=== PATIENT | female | born 1960 | race Caucasian/White ===

== ENCOUNTER 2021-11-15 21:11 | Observation (INO) ==
[2021-11-15 21:49] LABS: Bilirubin,Urine Negative (Negative); Blood,Urine Negative (Negative); Clarity,Urine Clear (Clear); Color,Urine Yellow (Yellow); Glucose,Urine (UA) Normal (Normal); Ketones,Urine Trace mg/dL (Negative); Leukocyte Esterase,Urine Negative (Negative); Nitrite,Urine Negative (Negative); PH,Urine 5.5 pH Units (5.0-8.0); Protein,Urine Trace mg/dL (Neg-Trace); Specific Gravity,Urine 1.029 (1.010-1.025); Urobilinogen,Urine Normal (Normal)
[2021-11-15 22:02] LABS: Basophils # 0.1 K/mcL (0.0-0.2); Basophils % 0.6 %; Eosinophils % 0.4 %; Hematocrit 45.6 % (35.3-44.9); Hemoglobin 14.9 g/dL (11.5-15.4); Immature Granulocytes % 0.4 % (0-4); Lymphocytes # 2.2 K/mcL (0.6-4.6); Lymphocytes % 20.7 %; Mean Corpuscular HGB Conc 32.7 g/dL (31.6-35.5); Mean Corpuscular Hemoglobin 29.3 pg (28.0-33.3); Mean Corpuscular Volume 89.8 fL (83.0-100.0); Mean Platelet Volume 11.8 fL (9.4-12.4); Monocytes # 0.6 K/mcL (0.0-1.3); Monocytes % 5.3 %; Neutrophils # 7.7 K/mcL (1.6-8.9); Platelet Count 291 K/mcL (140-400); Red Blood Count 5.08 M/mcL (3.82-4.97); Red Cell Distribution Width 13.2 % (11.5-14.5); Segmented Neutrophils % 72.6 %; White Blood Count 10.6 K/mcL (4.3-11.1)
[2021-11-15 22:23] LABS: Influenza A PCR Negative (Negative); Influenza B PCR Negative (Negative); Resp. Syncytial Virus PCR Negative (Negative)
[2021-11-15 22:25] LABS: SARS-CoV-2 by PCR (In House) Negative (Negative)
[2021-11-15 22:42] LABS: Alanine Aminotransferase 23 Units/L (7-52); Albumin 4.4 g/dL (3.5-5.7); Albumin/Globulin Ratio 1.6 (1.1-2.2); Alkaline Phosphatase 95 Units/L (34-104); Aspartate Amino Transferase 19 Units/L (13-39); BUN/Creatinine Ratio 13 (6-26); Bilirubin,Indirect 0.3 mg/dL (0.0-1.0); Bilirubin,Total 0.3 mg/dL (0.3-1.0); Blood Urea Nitrogen 13 mg/dL (8-23); Carbon Dioxide 23 mEq/L (23-29); Chloride 106 mEq/L (98-107); Globulin 2.8 g/dL (2.4-3.5); Glucose 152 mg/dL (70-105); Lipase 10 Units/L (11-82); Osmolality,Calculated 289 (280-300); Potassium 4.1 mEq/L (3.5-5.1); Sodium 138 mEq/L (136-145); Total Protein 7.2 g/dL (6.4-8.9); eGFR For African Americans > 60 (> 60); eGFR For Non-African Americans 55 (> 60)
[2021-11-15] MEDS ORDERED: Ondansetron 4 MG/2 ML VIAL IVP ONE (23:17)
[2021-11-15] MEDS ORDERED: Iopamidol - 370 500 ML MLS IVP ONE (23:17)
[2021-11-15] MEDS ORDERED: Morphine Sulfate 2 MG/ML SYRINGE IVP ONE (23:17)
[2021-11-15] MEDS ORDERED: 0.9 % Sodium Chloride 1,000 ML IV ONE (23:17)
[2021-11-15 23:49] LABS: Troponin I < 0.03 ng/mL (< 0.04)
[2021-11-16] MEDS ORDERED: Morphine Sulfate 2 MG/ML SYRINGE IVP ONE ×2 (01:19→02:37)
[2021-11-16] MEDS ORDERED: Piperacillin/Tazobactam 3.375 GM in 0.9 % Sodium Chloride Mini Bag 100 ML IVP ONE (02:02)
[2021-11-16] MEDS ORDERED: D5% in Water 1,000 ML IVC PRN ×2 (02:22→19:56)
[2021-11-16] MEDS ORDERED: Ondansetron 4 MG/2 ML VIAL IVP PRN ×3 (02:22→19:56)
[2021-11-16] MEDS ORDERED: *HR* Dextrose 50 % in Water (Syg) 50 ML SYRINGE IVP PRN ×2 (02:22→19:56)
[2021-11-16] MEDS ORDERED: Dextrose Gel 15 GM/37.5 ML TUBE PO PRN ×4 (02:22→19:56)
[2021-11-16] MEDS ORDERED: Naloxone 0.4 MG/ML INJ IVP PRN ×3 (02:22→19:56)
[2021-11-16] MEDS ORDERED: Acetaminophen 325 MG TABLET PO PRN (03:19)
[2021-11-16] MEDS: 0.9 % Sodium Chloride 1,000 ML IVC SCH ×3 (03:52→20:41)
[2021-11-16 05:35] LABS: Basophils # 0.1 K/mcL (0.0-0.2); Basophils % 0.4 %; Hematocrit 48.5 % (35.3-44.9); Hemoglobin 14.8 g/dL (11.5-15.4); Immature Granulocytes % 0.5 % (0-4); Immature Platelets 11.4 % (1.1-6.1); Lymphocytes # 1.3 K/mcL (0.6-4.6); Lymphocytes % 9.3 %; Mean Corpuscular HGB Conc 30.5 g/dL (31.6-35.5); Mean Corpuscular Hemoglobin 28.8 pg (28.0-33.3); Mean Corpuscular Volume 94.4 fL (83.0-100.0); Mean Platelet Volume 12.2 fL (9.4-12.4); Monocytes # 0.7 K/mcL (0.0-1.3); Monocytes % 5.2 %; Neutrophils # 11.8 K/mcL (1.6-8.9); Platelet Count 218 K/mcL (140-400); Red Blood Count 5.14 M/mcL (3.82-4.97); Red Cell Distribution Width 13.4 % (11.5-14.5); Segmented Neutrophils % 84.6 %; White Blood Count 13.9 K/mcL (4.3-11.1)
[2021-11-16 05:42] LABS: INR 0.9; Prothrombin Time 10.5 Seconds (9.4-12.1)
[2021-11-16] MEDS ORDERED: Famotidine 20 MG/2 ML VIAL IVP ONE (06:00)
[2021-11-16] MEDS ORDERED: Ringers Solution, Lactated 1,000 ML IVC ONE (06:00)
[2021-11-16] MEDS ORDERED: Pantoprazole 40 MG VIAL IVP SCH (06:30)
[2021-11-16 06:58] LABS: BUN/Creatinine Ratio 14 (6-26); Blood Urea Nitrogen 12 mg/dL (8-23); Carbon Dioxide 20 mEq/L (23-29); Chloride 107 mEq/L (98-107); Glucose 141 mg/dL (70-105); Osmolality,Calculated 286 (280-300); Potassium 3.8 mEq/L (3.5-5.1); Sodium 137 mEq/L (136-145); eGFR For African Americans > 60 (> 60); eGFR For Non-African Americans > 60 (> 60)
[2021-11-16] MEDS ORDERED: Piperacillin/Tazobactam 3.375 GM in 0.9 % Sodium Chloride Mini Bag 100 ML IVPB SCH (10:00)
[2021-11-16 12:09] LABS: Alanine Aminotransferase 45 Units/L (7-52); Albumin 4.3 g/dL (3.5-5.7); Albumin/Globulin Ratio 1.5 (1.1-2.2); Alkaline Phosphatase 109 Units/L (34-104); Aspartate Amino Transferase 54 Units/L (13-39); Bilirubin,Total 0.4 mg/dL (0.3-1.0); Calcium 8.8 mg/dL (8.6-10.3); Globulin 2.9 g/dL (2.4-3.5); Magnesium 2.1 mg/dL (1.6-2.6); Phosphorous 2.6 mg/dL (2.7-4.5); Total Protein 7.2 g/dL (6.4-8.9)
[2021-11-16] MEDS ORDERED: Acetaminophen IV 1,000 MG/100 ML BAG IVPB ONE (13:33)
[2021-11-16] MEDS ORDERED: Ondansetron 4 MG/2 ML VIAL ONE (15:11)
[2021-11-16] MEDS ORDERED: Lidocaine HCL 4 ML Topical Solution (Laryng-O-Jet Kit Sterile Pak) TP ONE (15:11)
[2021-11-16] MEDS ORDERED: Lidocaine -MPF 2% 5 ML VIAL ONE (15:11)
[2021-11-16] MEDS ORDERED: *HR* Rocuronium Bromide 50 MG/5 ML VIAL ONE (15:11)
[2021-11-16] MEDS ORDERED: *HR* Propofol 200 MG/20 ML VIAL IVP ONE (15:12)
[2021-11-16] MEDS ORDERED: Famotidine 20 MG/2 ML VIAL ONE (16:06)
[2021-11-16] MEDS ORDERED: *HR* FentaNYL (PF) 100 MCG/2 ML VIAL IVP PRN (16:09)
[2021-11-16] MEDS ORDERED: Albuterol 2.5 MG/3 ML NEBULIZER IH PRN (16:09)
[2021-11-16] MEDS ORDERED: Nitroglycerin 0.4 MG TAB.SUBL SL PRN (16:09)
[2021-11-16] MEDS ORDERED: *HR* Promethazine 25 MG/ML VIAL ONE (16:55)
[2021-11-16] MEDS ORDERED: Iopamidol - 300 50 ML VIAL ONE (17:04)
[2021-11-16] MEDS ORDERED: *HR* Midazolam HCl 2 MG/2 ML VIAL ONE (17:19)
[2021-11-16] MEDS ORDERED: Ketamine HCL *QUVA* 50mg (1mL) SYRINGE ONE (17:32)
[2021-11-16] MEDS ORDERED: Sugammadex Sodium 200 MG/2 ML VIAL IV ONE (18:20)
[2021-11-16] MEDS: Gabapentin 400 MG CAPSULE PO SCH (21:14)
[2021-11-17] MEDS: Ketorolac 30 MG/ML VIAL IVP SCH ×3 (01:20→11:16)
[2021-11-17] MEDS: Acetaminophen IV 1,000 MG/100 ML BAG IVPB SCH ×2 (01:21→06:10)
[2021-11-17] MEDS: Piperacillin/Tazobactam 3.375 GM in 0.9 % Sodium Chloride Mini Bag 100 ML IVPB SCH ×2 (01:31→08:49)
[2021-11-17] MEDS ORDERED: Temazepam 15 MG CAPSULE PO PRN (01:39)
[2021-11-17 02:46] LABS: Basophils % 0.1 %; Hematocrit 37.7 % (35.3-44.9); Immature Granulocytes % 0.5 % (0-4); Lymphocytes # 1.2 K/mcL (0.6-4.6); Lymphocytes % 8.8 %; Mean Corpuscular HGB Conc 33.2 g/dL (31.6-35.5); Mean Corpuscular Hemoglobin 28.8 pg (28.0-33.3); Monocytes # 0.4 K/mcL (0.0-1.3); Neutrophils # 12.1 K/mcL (1.6-8.9); Platelet Count 280 K/mcL (140-400); Red Blood Count 4.34 M/mcL (3.82-4.97); Red Cell Distribution Width 13.2 % (11.5-14.5); Segmented Neutrophils % 87.6 %; White Blood Count 13.8 K/mcL (4.3-11.1)
[2021-11-17 02:47] LABS: Hemoglobin 12.5 g/dL (11.5-15.4); Mean Corpuscular Volume 86.9 fL (83.0-100.0)
[2021-11-17 03:09] LABS: Alanine Aminotransferase 155 Units/L (7-52); Albumin 3.9 g/dL (3.5-5.7); Albumin/Globulin Ratio 1.6 (1.1-2.2); Alkaline Phosphatase 85 Units/L (34-104); Aspartate Amino Transferase 141 Units/L (13-39); BUN/Creatinine Ratio 12 (6-26); Bilirubin,Total 0.4 mg/dL (0.3-1.0); Blood Urea Nitrogen 8 mg/dL (8-23); Calcium 8.8 mg/dL (8.6-10.3); Carbon Dioxide 22 mEq/L (23-29); Chloride 105 mEq/L (98-107); Globulin 2.5 g/dL (2.4-3.5); Glucose 130 mg/dL (70-105); Osmolality,Calculated 282 (280-300); Potassium 4.1 mEq/L (3.5-5.1); Sodium 136 mEq/L (136-145); Total Protein 6.4 g/dL (6.4-8.9)
[2021-11-17] MEDS: 0.9 % Sodium Chloride 1,000 ML IVC SCH ×2 (06:10→08:48)
[2021-11-17] MEDS ORDERED: Pantoprazole 40 MG VIAL IVP SCH (06:30)
[2021-11-17] MEDS: Gabapentin 400 MG CAPSULE PO SCH (08:50)
[2021-11-17] MEDS ORDERED: FLUoxetine 20 MG CAPSULE PO SCH (09:00)
[2021-11-17 11:29] VITALS: BP 152/99; PULSE 107; TEMP 97.4; O2SAT 98
== END 2021-11-17 13:33 | disposition home or self-care (01) ==
LOC: EMEROOARM 21:11 → 3NENU 21:11 → SUATTDRO 11-16 02:22 → 3NENU 11-16 03:22
PROVIDERS: ADMIT Internal Medicine; ATTEND Internal Medicine